=== PATIENT | female | born 1950 | race Caucasian/White ===

== ENCOUNTER → 2020-11-09 | Outpatient (CLI) | payer MEDICARE, BC, OTHER ==
[~2020-11-09] MED LIST: ALBUTEROL INH INH; ALLERGY RELIEF10 M1 PO; ASPIRIN 325MG325 MG PO; AZILECT PO; B12 PO; CLEOCIN HCL300 MG PO; DICLOFENAC POTA50 MG PO; FLONASE 0.05% N16 GM; HYDROCODON-ACE1 EAC4 PO; LEVOTHYROXINE75 MCG PO; LOSARTAN POTASS50 MG PO; MELATONIN10 M2 PO; MOVE FREE PO; PERCOCET 5/325 T1 EA PO; PRAVASTATIN SOD20 MG PO; RANITIDINE HCL150 MG PO; STOOL SOFTENER100 M1 PO; TIZANIDINE HCL4 MG PO; TRAMADOL HCL50 MG PO; TYLENOL 500 MG500 MG PO; VIT D PO; VITAMIN C 500500 MG PO; VITAMIN D250000 UNIT PO; VOLTAREN-XR100 MG PO
== END ==
LOC: HEART 5 15:08
DX: I27.20 Pulmonary hypertension, unspecified (principal); J43.9 Emphysema, unspecified
CPT/HCPCS: 94060; 94729

== ENCOUNTER → 2020-12-18 | Outpatient (CLI) | payer MEDICARE, BC, OTHER | LOC: KOH-I 12-07 13:30 | DX: J47.9 Bronchiectasis, uncomplicated (principal); J98.11 Atelectasis | CPT/HCPCS: 71250 ==

== ENCOUNTER → 2021-01-28 | Outpatient (CLI) | payer MEDICARE, BC, OTHER | LOC: KOH-I 14:40 | DX: M79.671 Pain in right foot (principal) | CPT/HCPCS: 73630 ==

== ENCOUNTER → 2021-02-04 | Outpatient (CLI) | payer MEDICARE, BC, OTHER | LOC: KOH-I 11:30 | DX: S92.321D Displaced fracture of second metatarsal bone, right foot, subsequent encounter for fracture with routine healing (principal) | CPT/HCPCS: 73700 ==